=== PATIENT | male | born 1965 | race Caucasian/White ===

== ENCOUNTER 2016-08-01 13:03 | Emergency (ER) | payer OTHER ==
[2016-08-01 13:20] VITALS: BP 98/60; PULSE 83; TEMP 97.4; BMI 21.1
--- NOTE | 2016-08-01 15:13 | PDOC ---
History of Present Illness - General Chief Complaint: Pain Stated Complaint: RT FOOT INJURY Time Seen by Provider: 08/01/16 14:55 History Source: Patient Exam Limitations: No Limitations - History of Present Illness Initial Comments: 08/01/16 15:58 Chief complaint:rt. lateral foot swelling History of present illness: Patient is a 51-year-old male with MR, seizure disorder, hypothyroidism, or to some, organic brain injury and mitral valve prolapse here today with staff member from [facility] due to noticing the patient's right lateral foot was slightly swollen and patient walking differently not putting entire weight on his foot. Staff member does not know of any fall that pt. might of had. Occurred: reports: this morning Severity: Yes: mild Lower Extremity Pain Location: right: foot (rt. lateral foot edema ) Method of Injury: Yes: unknown Modifying Factors: improves with: None Lower Ext. Injury Location - Specific Injury Location Foot: right foot pain, right foot swelling (rt. lateral ) Extremity Pain Location - Extremity Pain Location Extremity Pain Locations: right: foot (lateral foot ) Past History - Past Medical History Allergies/Adverse Reactions: Allergies Allergy/AdvReac Type Severity Reaction Status Date / Time phenytoin sodium Allergy Verified 08/01/16 13:13 [From Dilantin] phenytoin sodium extended Allergy Verified 08/01/16 13:13 [From Dilantin] Milk Containing Products AdvReac Verified 08/01/16 13:13 Home Medications: Ambulatory Orders Calcium Carbonate/Vitamin D3 [Calcium 600 + Vit D 400 Tablet] 1 each PO DAILY Divalproex [Depakote -] 500 mg PO TID 01/09/14 Levetiracetam [Keppra Xr -] 500 mg PO BID 01/09/14 Levothyroxine [Synthroid -] 125 mcg PO DAILY 01/09/14 Lorazepam 0.5 mg PO HS 01/09/14 Mv-Mn/FA/Coq10/Lycopene/Lutein [Theragran-M Premier 50+ Caplet] 1 each PO DAILY 01/09/14 Thioridazine HCl 25 mg PO DAILY 01/09/14 Thioridazine HCl 100 mg PO TID 01/09/14 Topiramate 100 mg PO BID 01/09/14 Ibuprofen [Motrin -] 400 mg PO Q6H PRN #12 tablet 02/15/16 Cardiac Disorders: Yes (MVP) Seizures: Yes Thyroid Disease: Yes (HYPO) Other medical history: MR, AUTISM, ORGANIC BRAIN DISEASE - Psycho/Social/Smoking Cessation Hx Anxiety: No Suicidal Ideation: No Smoking History: Never smoked Hx Alcohol Use: No Drug/Substance Use Hx: No Substance Use Type: None Review of Systems - Review of Systems Able to Perform ROS?: Yes Constitutional: No: Symptoms Reported HEENTM: No: Symptoms Reported Respiratory: No: Symptoms reported Cardiac (ROS): No: Symptoms Reported ABD/GI: No: Symptoms Reported : No: Symptoms Reported Musculoskeletal: Yes: Joint Pain (rt. foot tenderness ), Joint Swelling (rt. lateral foot ) Integumentary: No: Symptoms Reported Neurological: No: Symptoms reported *Physical Exam - Vital Signs Last Vital Signs Temp Pulse Resp BP Pulse Ox 97.4 F L 83 18 98/60 99 08/01/16 13:13 08/01/16 13:13 08/01/16 13:13 08/01/16 13:13 08/01/16 13:13 - Physical Exam General Appearance: Yes: Appropriately Dressed Vascular Pulses: Dorsalis-Pedis (R): 4+ Extremity: positive: Normal Capillary Refill, Normal Inspection, Normal Range of Motion, Tender (rt. lateral foot ), Swelling Integumentary: positive: Normal Color, Swelling (rt. lateral foot ) Neurologic: positive: Normal Response, Respond to painful stimul (rt/ foot ), Responsive Procedures - Consent Consent obtained: Written - Splinting Progress: 08/01/16 16:23 Tape right fourth and fifth toes and applied hard sole shoe Medical Decision Making - Medical Decision Making 08/01/16 16:00 Patient is a 51-year-old male with MR, seizure disorder, hypothyroidism, or to some, organic brain injury and mitral valve prolapse here today with staff member from [facility] due to noticing the patient's right lateral foot was slightly swollen and patient walking differently not putting entire weight on his foot. Staff member does not know of any fall that pt. might of had. r/o fracture rt. foot/ankle PLAN: xray right foot lucency noted rt. 5th base of proximal phalange per Dr. Ladan rosenthal tape rt. 4th and 5th toes. cast shoe applied ortho consult needed acetaminophen 650 mg po now elevate rt. leg as much as possible and apply ice every 1 hour while awake today as tolerated 08/01/16 16:01 08/01/16 16:23 *DC/Admit/Observation/Transfer Diagnosis at time of Disposition: Toe fracture, right Qualifiers: Encounter type: initial encounter Toe: lesser toe Fracture type: closed Phalanx : proximal Fracture alignment: nondisplaced Qualified Code(s): S92.514A - Nondisplaced fracture of proximal phalanx of right lesser toe(s), initial encounter for closed fracture - Discharge Dispostion Disposition: HOME Condition at time of disposition: Stable - Referrals Referrals: Virginia Bass MD [Primary Care Provider] - Emil Fajardo MD [Staff Physician] - Austen Moraes MD [Staff Physician] - - Patient Instructions Additional Instructions: USE adhesive tape to right fourth and fifth toe bring them together daily called a galo tape if patient tolerates this and wear hard sole shoe apply ice to rt. fifth toe every hour for 5 minutes while awake today Acetaminophen as needed as directed by process specialist for pain Follow-up with orthopedist or civil defense director within the next few days Patient voiced understanding of discharge instructions and all questions were answered
[2016-08-01] MEDS ORDERED: ACETAMINOPHEN 325 MG TABLET (FP) PO ONE (16:26)
[2016-08-01] MEDS ORDERED: ACETAMINOPHEN 325 MG TABLET (FP) ONE (16:29)
== END 2016-08-01 16:38 | disposition home or self-care (01) ==
LOC: JERFT 13:03
DX: S92.354A Nondisplaced fracture of fifth metatarsal bone, right foot, initial encounter for closed fracture (principal); X58.XXXA Exposure to other specified factors, initial encounter; Y93.89 Activity, other specified; Y92.198 Other place in other specified residential institution as the place of occurrence of the external cause; F79 Unspecified intellectual disabilities; I34.1 Nonrheumatic mitral (valve) prolapse; E03.9 Hypothyroidism, unspecified; Z86.69 Personal history of other diseases of the nervous system and sense organs
CPT/HCPCS: 73610-TC-RT; 73630-TC-RT; 99281-25

== ENCOUNTER 2016-08-13 12:14 | Emergency (ER) | payer OTHER ==
[2016-08-13 12:31] VITALS: BP 91/57; PULSE 81; TEMP 97.2; BMI 22.1
--- NOTE | 2016-08-13 13:35 | PDOC ---
History of Present Illness - General Chief Complaint: Injury Stated Complaint: FACIAL INJURY (URGENT CARE REFERRED) Time Seen by Provider: 08/13/16 12:54 History Source: Patient Exam Limitations: No Limitations - History of Present Illness Initial Comments: 08/13/16 13:27 BIB staff at [facility] for evaluation post fall this am, t; trip and hit floor Occurred: reports: this morning Severity: reports: mild Pain Location: reports: face Method of Injury: Yes: fall Loss of Consciousness: no loss of consciousness Associated Symptoms (Fall): other (laceration under lip) Past History - Past Medical History Allergies/Adverse Reactions: Allergies Allergy/AdvReac Type Severity Reaction Status Date / Time phenytoin sodium Allergy Verified 08/13/16 12:27 [From Dilantin] phenytoin sodium extended Allergy Verified 08/13/16 12:27 [From Dilantin] Milk Containing Products AdvReac Verified 08/13/16 12:27 Home Medications: Ambulatory Orders Calcium Carbonate/Vitamin D3 [Calcium 600 + Vit D 400 Tablet] 1 each PO DAILY Divalproex [Depakote -] 500 mg PO TID 01/09/14 Levetiracetam [Keppra Xr -] 500 mg PO BID 01/09/14 Levothyroxine [Synthroid -] 125 mcg PO DAILY 01/09/14 Lorazepam 0.5 mg PO HS 01/09/14 Mv-Mn/FA/Coq10/Lycopene/Lutein [Theragran-M Premier 50+ Caplet] 1 each PO DAILY 01/09/14 Thioridazine HCl 25 mg PO DAILY 01/09/14 Thioridazine HCl 100 mg PO TID 01/09/14 Topiramate 100 mg PO BID 01/09/14 Ibuprofen [Motrin -] 400 mg PO Q6H PRN #12 tablet 08/17/15 Cardiac Disorders: Yes (MVP) Seizures: Yes Thyroid Disease: Yes (HYPO) - Psycho/Social/Smoking Cessation Hx Anxiety: No Suicidal Ideation: No Smoking History: Never smoked Hx Alcohol Use: No Drug/Substance Use Hx: No Substance Use Type: None Review of Systems - Review of Systems Constitutional: Yes: Other (small laceration noted under lip). No: Chills, Fever, Malaise *Physical Exam - Vital Signs Last Vital Signs Temp Pulse Resp BP Pulse Ox 97.2 F L 81 14 91/57 99 08/13/16 12:28 08/13/16 12:28 08/13/16 12:28 08/13/16 12:28 08/13/16 12:28 - Physical Exam General Appearance: Yes: Appropriately Dressed. No: Apparent Distress HEENT: positive: Other (<1 cm laceration under right lower lip; no loose teeth , FROM on tmj) Neck: positive: Supple. negative: Tender, Rigid Respiratory/Chest: positive: Lungs Clear Neurologic: positive: Alert, Other (GCS= 15) Medical Decision Making - Medical Decision Making 08/13/16 13:32 Discussed treatment options with Zak Schneider from [facility]; decided that no repair needed to laceration <1 cm in size on face; steristrip applied; also no CT scan needed presently due to nature of accident;; wound closed *DC/Admit/Observation/Transfer Diagnosis at time of Disposition: Facial laceration Qualifiers: Encounter type: initial encounter Qualified Code(s): S01.81XA - Laceration without foreign body of other part of head, initial encounter Minor head injury without loss of consciousness Qualifiers: Encounter type: initial encounter Qualified Code(s): S09.90XA - Unspecified injury of head, initial encounter - Discharge Dispostion Disposition: HOME Condition at time of disposition: Stable Admit: No - Patient Instructions Additional Instructions: please clean wound daily; apply steri strip as able; return for any new symptoms ; wound check in 2 days with local MD
== END 2016-08-13 13:45 | disposition home or self-care (01) ==
LOC: JERFT 12:14
DX: S01.511A Laceration without foreign body of lip, initial encounter (principal); W18.39XA Other fall on same level, initial encounter; Y93.89 Activity, other specified; Y92.198 Other place in other specified residential institution as the place of occurrence of the external cause; G40.909 Epilepsy, unspecified, not intractable, without status epilepticus; E03.9 Hypothyroidism, unspecified; I34.1 Nonrheumatic mitral (valve) prolapse
CPT/HCPCS: 99281-25